=== PATIENT | female | born 1990 | race Caucasian/White ===

== ENCOUNTER 2018-03-06 23:17 | Emergency (ER) | payer OTHER ==
--- NOTE | 2018-03-07 00:20 | ED ---
General Adult HPI - General Chief complaint: Extremity Injury, Lower Stated complaint: Ankle injury Time Seen by Provider: 03/07/18 00:11 Source: patient, RN notes reviewed Mode of arrival: wheelchair Limitations: no limitations - History of Present Illness Initial comments: Patient for 27-year-old female presented to the emergency room today with a chief complaint of a fall occurred 2 hours ago. She states she fell down a few steps at the hotel she was standing up. She states she is experiencing pain from the right knee down onto the right foot. She admits to some numbness tingling sensation she states it's worse with movement of the right ankle with any plantar dorsiflexion. She denies any other complaints or injuries. States there is no head injury or loss of consciousness. Patient denies any recent fever, chills, shortness of breath, chest pain, back pain, abdominal pain, nausea or vomiting, headaches or visual changes, or any other complaints. - Related Data Home Medications Medication Instructions Recorded Confirmed No Known Home Medications [No 03/07/18 03/07/18 Known Home Medications] Allergies Allergy/AdvReac Type Severity Reaction Status Date / Time acetaminophen AdvReac Nausea & Verified 03/07/18 00:04 [From Tylenol-Codeine #3] Vomiting & Diarrhea codeine AdvReac Nausea & Verified 03/07/18 00:04 [From Tylenol-Codeine #3] Vomiting & Diarrhea Review of Systems ROS Statement: Those systems with pertinent positive or pertinent negative responses have been documented in the HPI. ROS Other: All systems not noted in ROS Statement are negative. Past Medical History Past Medical History: No Reported History History of Any Multi-Drug Resistant Organisms: None Reported Past Surgical History: Section Past Psychological History: No Psychological Hx Reported Smoking Status: Current every day smoker Past Alcohol Use History: Heavy Past Drug Use History: None Reported General Exam - General Exam Comments Initial Comments: General: The patient is awake and alert, in no distress, and does not appear acutely ill. Neck: The neck is supple, there is no tenderness or JVD. Musculoskeletal: Patient does have some bruising to the anterior aspect of the right yu. Does have some mild swelling over the lateral malleolus. Patient has noticed diffusely throughout the right yu, fibular head, down to the right ankle and into the metatarsals. Patient tenderness is greatest over the lateral malleolus on palpation. Pulses are 2+ bilaterally. Neurological: A&O x 3. CN II-XII intact, There are no obvious motor or sensory deficits. Coordination appears grossly intact. Speech is normal. Skin: Skin is warm and dry and no rashes or lesions are noted. Psychiatric: Normal mood and affect. Limitations: no limitations Course Vital Signs 03/06/18 23:59 Temperature 97.7 F Pulse Rate 107 H Respiratory 20 Rate Blood Pressure 124/75 O2 Sat by Pulse 95 Oximetry Medical Decision Making - Medical Decision Making X-rays reviewed and are negative for any acute fracture dislocation. Patient given Toradol shot here in the emergency room. She is advised to ice elevate the affected area and to follow-up with orthopedics. Advised return if symptoms increase or worsen or for any other concerns. Disposition Clinical Impression: Ankle sprain, Contusion of leg, right Disposition: HOME SELF-CARE Condition: Good Instructions: Ankle Sprain (ED) Additional Instructions: Please follow-up with orthopedic or family doctor in 7-10 days for repeat x- rays. Please return to emergency room if symptoms increase or worsen or for any other concerns. Is patient prescribed a controlled substance at d/c from ED?: No Referrals: Jenniffer Martinez MD [Primary Care Provider] - 1-2 days Bronson Griffin DO [Doctor of Osteopathic Medicine] - 1-2 days Time of Disposition: 00:59
--- NOTE | 2018-03-07 00:48 | XR ---
EXAMINATION TYPE: XR ankle complete RT DATE OF EXAM: 03/07/2018 COMPARISON: NONE HISTORY: Fell down the stairs TECHNIQUE: 3 views FINDINGS: Ankle mortise is anatomic. There is soft tissue swelling over the lateral malleolus. I see no fracture nor dislocation. IMPRESSION: Soft tissue swelling. No fracture.
--- NOTE | 2018-03-07 00:49 | XR ---
EXAMINATION TYPE: XR tibia fibula RT DATE OF EXAM: 03/07/2018 COMPARISON: NONE HISTORY: Pain. Fell down the stairs. TECHNIQUE: 2 views FINDINGS: I see no fracture nor dislocation. There are soft tissue swelling over the lateral malleolu s. Knee joint appears intact. IMPRESSION: Soft tissue swelling. No fracture.
--- NOTE | 2018-03-07 00:50 | XR ---
EXAMINATION TYPE: XR foot complete RT DATE OF EXAM: 03/07/2018 COMPARISON: NONE HISTORY: Pain. Fell down the stairs. TECHNIQUE: 3 views FINDINGS: I see no fracture nor dislocation. Metatarsals are intact. Joint spaces are normal. IMPRESSION: Normal right foot
[2018-03-07] MEDS ORDERED: KETOROLAC 60 MG/2 ML VIAL IM STA (00:58)
[2018-03-07 01:16] VITALS: BP 124/76; PULSE 104; RESP 14; TEMP 98
== END 2018-03-07 01:31 | disposition home or self-care (01) ==
LOC: EC 23:17
DX: S93.401A Sprain of unspecified ligament of right ankle, initial encounter (principal); S80.11XA Contusion of right lower leg, initial encounter; F17.200 Nicotine dependence, unspecified, uncomplicated; Z88.5 Allergy status to narcotic agent; Z88.8 Allergy status to other drugs, medicaments and biological substances; W10.9XXA Fall (on) (from) unspecified stairs and steps, initial encounter; Y92.59 Other trade areas as the place of occurrence of the external cause
CPT/HCPCS: 99283; 73590; 73610; 73630; L4350; J1885

== ENCOUNTER 2023-12-13 12:30 | Emergency (ER) | payer OTHER ==
[2023-12-13 12:44] VITALS: RESP 18
--- NOTE | 2023-12-13 13:08 | ED ---
Chest Pain HPI - General Chief Complaint: Chest Pain Stated Complaint: Chest Pain, weakness Time Seen by Provider: 12/13/23 12:46 Source: patient, RN notes reviewed, old records reviewed, Caregiver Mode of arrival: ambulatory Limitations: no limitations - History of Present Illness Initial Comments: This is a 33-year-old female to the ER for evaluation of nausea vomiting chest pain weakness, history of alcohol abuse no other current medical or surgical history comes in with chest pain for few weeks now, persistent here in the emergency department. No recent fevers travel or sick contacts no swelling or lower extremity edema he no current shortness of breath MD Complaint: chest pain -: week(s) Onset: during rest, during exertion Pain Location: substernal, left chest Pain Radiation: none Severity: moderate Quality: aching Consistency: constant Improves With: nothing Worsens With: nothing Anginal Symptoms: nausea, dyspnea Other Symptoms: palpitations Treatments Prior to Arrival: none - Related Data Home Medications Medication Instructions Recorded Confirmed No Known Home Medications 03/07/18 03/07/18 Allergies Allergy/AdvReac Type Severity Reaction Status Date / Time acetaminophen AdvReac Nausea & Verified 12/13/23 12:35 [From Tylenol-Codeine #3] Vomiting & Diarrhea codeine AdvReac Nausea & Verified 12/13/23 12:35 [From Tylenol-Codeine #3] Vomiting & Diarrhea Review of Systems ROS Statement: Those systems with pertinent positive or pertinent negative responses have been documented in the HPI. ROS Other: All systems not noted in ROS Statement are negative. EKG Findings - EKG Comments: EKG Findings:: EKG is sinus 84 [place] 163 QRS 87 QTc 387 - EKG Results: EKG: interpreted by PILAR Past Medical History Past Medical History: No Reported History History of Any Multi-Drug Resistant Organisms: None Reported Past Surgical History: Section Past Psychological History: No Psychological Hx Reported Smoking Status: Current every day smoker Past Alcohol Use History: Heavy Past Drug Use History: None Reported General Exam Limitations: no limitations General appearance: alert, in no apparent distress Head exam: Present: atraumatic, normocephalic, normal inspection Eye exam: Present: normal appearance, PERRL, EOMI. Absent: scleral icterus, conjunctival injection, periorbital swelling ENT exam: Present: normal exam, mucous membranes moist Neck exam: Present: normal inspection. Absent: tenderness, meningismus, lymphadenopathy Respiratory exam: Present: normal lung sounds bilaterally. Absent: respiratory distress, wheezes, rales, rhonchi, stridor Cardiovascular Exam: Present: regular rate, normal rhythm, normal heart sounds. Absent: systolic murmur, diastolic murmur, rubs, gallop, clicks GI/Abdominal exam: Present: soft, normal bowel sounds. Absent: distended, tenderness, guarding, rebound, rigid Extremities exam: Present: normal inspection, full ROM, normal capillary refill. Absent: tenderness, pedal edema, joint swelling, calf tenderness Back exam: Present: normal inspection Neurological exam: Present: alert, oriented X3, CN II-XII intact Psychiatric exam: Present: normal affect, normal mood Skin exam: Present: warm, dry, intact, normal color. Absent: rash Course Vital Signs 12/13/23 12/13/23 12:32 14:39 Temperature 98.4 F 98.2 F Pulse Rate 96 84 Respiratory 18 18 Rate Blood Pressure 141/93 139/87 O2 Sat by Pulse 95 96 Oximetry - Reevaluation(s) Reevaluation #1: Medical records reviewed Reevaluation #2: Patient symptoms unchanged Reevaluation #3: Patient informed of results and questions answered Reevaluation #4: Was pt. sent in by a medical professional or institution (, PA, CHORE TENDER, urgent care, hospital, or half-way...) When possible be specific @ -no Did you speak to anyone other than the patient for history (EMS, parent, family, police, friend...)? What history was obtained from this source @ -no Did you review nursing and triage notes (agree or disagree)? Why? @ -agree Are old charts reviewed (outside hosp., previous admission, EMS record, old EKG, old radiological studies, urgent care reports/EKG's, half-way records)? Report findings @ -yes Differential Diagnosis (chest pain, altered mental status, abdominal pain women, abdominal pain men, vaginal bleeding, weakness, fever, dyspnea, syncope, headache, dizziness, GI bleed, back pain, seizure, CVA, palpatations, mental health, musculoskeletal)? @ -prior EKG interpreted by me (3pts min.). @ -yes X-rays interpreted by me (1pt min.). @ -no CT interpreted by me (1pt min.). @ -no U/S interpreted by me (1pt. min.). @ -no What testing was considered but not performed or refused? (CT, X-rays, U/S, labs)? Why? @ -none What meds were considered but not given or refused? Why? @ -none Did you discuss the management of the patient with other professionals (professionals i.e. DrStephanie, PA, CHORE TENDER, lab, RT, psych nurse, social sciences lecturer, monkey breeder, teacher, landing signal officer, patient case coordinator)? Give summary @ -no Was smoking cessation discussed for >3mins.? @ -no Was critical care preformed (if so, how long)? @ -no Were there social determinants of health that impacted care today? How? (Homelessness, low income, unemployed, alcoholism, drug addiction, transportation, low edu. Level, literacy, decrease access to med. care, usp, rehab)? @ -none Was there de-escalation of care discussed even if they declined (Discuss DNR or withdrawal of care, Hospice)? DNR status @ -no What co-morbidities impacted this encounter? (DM, HTN, Smoking, COPD, CAD, Cancer, CVA, ARF, Chemo, Hep., AIDS, mental health diagnosis, sleep apnea, morbid obesity)? @ -none Was patient admitted / discharged? Hospital course, mention meds given and route, prescriptions, significant lab abnormalities, going to OR and other pertinent info. @ - 33 female to ER for evaluation of nonspecific chest pain here no acute cause found here in the ER EKG is normal patient can be discharged home Discharge Undiagnosed new problem with uncertain prognosis? @ -no Drug Therapy requiring intensive monitoring for toxicity (Heparin, Nitro, Insulin, Cardizem)? @ -no Were any procedures done? @ -no Diagnosis/symptom? @ -Chest pain Acute, or Chronic, or Acute on Chronic? @ -Acute Uncomplicated (without systemic symptoms) or Complicated (systemic symptoms)? @ -Complicated Side effects of treatment? @ -no Exacerbation, Progression, or Severe Exacerbation? @ -exacerbation Poses a threat to life or bodily function? How? (Chest pain, [place], [place], pneumonia, PE, COPD, DKA, ARF, appy, cholecystitis, CVA, Diverticulitis, Homicidal, Suicidal, threat to staff... and all critical care pts) @ -no Reevaluation #5: Differential Chest Pain: Stable Angina, Unstable Angina, STEMI, NSTEMI Aortic Dissection, Pneumothorax, Musculoskeletal, Esophageal Spasm GERD, Cholecystitis, Pancreatitis, Zoster, this is not meant to be an all-inclusive list. Chest Pain MDM - MDM 33 female to ER for evaluation of nonspecific chest pain here no acute cause found here in the ER EKG is normal patient can be discharged home Disposition Clinical Impression: Atypical chest pain, Chest pain Disposition: HOME SELF-CARE Condition: Good Instructions (If sedation given, give patient instructions): Chest Pain (ED) Is patient prescribed a controlled substance at d/c from ED?: No Referrals: None,Stated [Primary Care Provider] - 1-2 days Time of Disposition: 14:25
[2023-12-13] MEDS: MAG HYDROX/AL HYDROX/SIMETH 30 ML, HYOSCYAMINE ELIXIR 10 ML PO STA (13:23)
[2023-12-13] MEDS: SODIUM CHLORIDE 0.9% 1,000 ML IV STA (13:25)
[2023-12-13] MEDS: KETOROLAC 15 MG/ML 1 ML VIAL IVP STA (13:26)
[2023-12-13] MEDS: ONDANSETRON 4 MG/2 ML VIAL IVP STA (13:27)
[2023-12-13 13:29] LABS: Basophils # (A) 0.1 k/uL (0-0.2); Basophils % (A) 1 %; Eosinophils # (A) 0.3 k/uL (0-0.7); Eosinophils % (A) 3 %; HCT 47.9 % (34.0-46.0); HGB 15.8 gm/dL (11.4-16.0); Lymphocytes # (A) 2.9 k/uL (1.0-4.8); Lymphocytes % (A) 35 %; MCH 29.1 pg (25.0-35.0); MCHC 33.1 g/dL (31.0-37.0); MCV 88.1 fL (80.0-100.0); Mean Platelet Volume 7.6; Monocytes # (A) 0.3 k/uL (0-1.0); Monocytes % (A) 4 %; Neutrophils # (A) 4.5 k/uL (1.3-7.7); Neutrophils % (A) 55 %; Platelet Count 262 k/uL (150-450); RBC 5.44 m/uL (3.80-5.40); WBC 8.1 k/uL (3.8-10.6)
[2023-12-13 13:38] LABS: Partial Thromboplastin Time 25.3 sec (22.0-30.0); Prothrombin Time 10.6 sec (10.0-12.5)
[2023-12-13 13:42] LABS: ALT 156 U/L (4-34); AST 170 U/L (14-36); African American GFR (CKD) >90 (>60 ml/min/1.73 sqM); Albumin 4.8 g/dL (3.5-5.0); Alkaline Phosphatase 94 U/L (38-126); Anion Gap 16 mmol/L; Blood Urea Nitrogen 12 mg/dL (7-17); Calcium 9.4 mg/dL (8.4-10.2); Carbon Dioxide 18 mmol/L (22-30); Chloride 108 mmol/L (98-107); Glucose 90 mg/dL (74-99); Lipase 88 U/L (23-300); Magnesium 1.8 mg/dL (1.6-2.3); Non-African American GFR(CKD) >90 (>60 ml/min/1.73 sqM); Sodium 142 mmol/L (137-145); Total Bilirubin 1.1 mg/dL (0.2-1.3); Total Protein 7.7 g/dL (6.3-8.2)
[2023-12-13 13:50] LABS: NT-Pro-B-Type Natriuretic Pept <20 pg/mL
[2023-12-13 14:44] VITALS: BP 139/87; PULSE 84; TEMP 98.2
== END 2023-12-13 14:41 | disposition home or self-care (01) ==
LOC: EC 12:30
DX: R07.89 Other chest pain (principal); F17.200 Nicotine dependence, unspecified, uncomplicated; Z88.5 Allergy status to narcotic agent
CPT/HCPCS: 36415; 93005; 83880; 80053; 83690; 83735; 84484; 85025; 85610; 85730; 99285; 96374; 96375; 96361; J2405; J1885

== ENCOUNTER 2024-02-14 15:03 | Emergency (ER) | payer OTHER ==
[2024-02-14 15:22] VITALS: TEMP 97.6
--- NOTE | 2024-02-14 15:35 | ED ---
Chest Pain HPI - General Chief Complaint: Chest Pain Stated Complaint: Chest pain Time Seen by Provider: 02/14/24 15:19 Source: patient Mode of arrival: ambulatory Limitations: no limitations - History of Present Illness Initial Comments: This patient is a 33-year-old woman who presents for evaluation of chest pain. The patient had been to urgent care and was referred here to be seen about the pain. The pain had started on Monday. It is substernal and radiates towards the left shoulder/arm. The patient initially had nausea vomiting and diarrhea over the weekend and then the pain began. There was initially some nausea and vomiting with the pain. Patient's fianc states that she also was diaphoretic with it at onset. The patient states that when she tried to go to work today the pain was worse so she went to urgent care and then was sent here from the urgent care. MD Complaint: chest pain -: days(s) Onset: during rest Pain Location: substernal Pain Radiation: LUE, back Severity: moderate Quality: aching Consistency: constant Improves With: nothing Worsens With: nothing Anginal Symptoms: nausea, vomiting, diaphoresis Treatments Prior to Arrival: none - Related Data On Oral Contraceptives: No Home Medications Medication Instructions Recorded Confirmed Aspirin EC [Ecotrin Low Dose] 81 mg PO DAILY 02/14/24 02/14/24 Isosorbide Mononitrate ER [Imdur] 15 mg PO DAILY 02/14/24 02/14/24 Allergies Allergy/AdvReac Type Severity Reaction Status Date / Time codeine Allergy rash, Verified 02/14/24 15:36 [From Tylenol-Codeine #3] Nausea & Vomiting & Diarrhea Review of Systems ROS Statement: Those systems with pertinent positive or pertinent negative responses have been documented in the HPI. ROS Other: All systems not noted in ROS Statement are negative. Constitutional: Denies: fever, chills Respiratory: Denies: cough, dyspnea Cardiovascular: Reports: as per HPI, chest pain. Denies: palpitations, orthopnea, edema, syncope Gastrointestinal: Reports: nausea, vomiting, diarrhea. Denies: abdominal pain, melena, hematochezia Genitourinary: Denies: dysuria, hematuria Musculoskeletal: Denies: back pain Skin: Denies: rash Neurological: Denies: headache, weakness, numbness, paresthesias EKG Findings - EKG Results: EKG: interpreted by ERMD, sinus rhythm (Rate 96 bpm), normal axis, normal QRS - Blocks, [place], Hypertrophy, ST Abn: Repolarization changes or abnormalities: nonspecific abnormality, ST segment, and/or T wave Past Medical History Past Medical History: No Reported History History of Any Multi-Drug Resistant Organisms: None Reported Past Surgical History: Section Past Psychological History: No Psychological Hx Reported, Anxiety, Depression Smoking Status: Former smoker Past Alcohol Use History: Heavy, Occasional Past Drug Use History: None Reported General Exam Limitations: no limitations General appearance: alert, in no apparent distress Head exam: Present: atraumatic, normocephalic Eye exam: Present: normal appearance. Absent: scleral icterus, conjunctival injection ENT exam: Present: normal oropharynx Neck exam: Present: normal inspection Respiratory exam: Present: normal lung sounds bilaterally. Absent: respiratory distress, wheezes, rales, rhonchi, stridor, accessory muscle use Cardiovascular Exam: Present: regular rate, normal rhythm, normal heart sounds. Absent: systolic murmur, diastolic murmur, rubs, gallop GI/Abdominal exam: Present: soft, tenderness (There is mild epigastric right upper quadrant tenderness without rebound or guarding). Absent: distended, guarding, rebound, rigid, mass, pulsatile mass, hernia Extremities exam: Present: normal inspection, normal capillary refill. Absent: pedal edema, calf tenderness Back exam: Present: normal inspection. Absent: CVA tenderness (R), CVA tenderness (L) Neurological exam: Present: alert Skin exam: Present: warm, dry, intact, normal color. Absent: rash Course Vital Signs 02/14/24 02/14/24 02/14/24 15:12 17:00 18:00 Temperature 97.6 F Pulse Rate 105 H 89 75 Respiratory 18 20 14 Rate Blood Pressure 115/77 110/88 116/73 O2 Sat by Pulse 96 97 97 Oximetry Chest Pain [facility] Patient is a 33-year-old woman here to have evaluation for chest pain. Physical exam is unremarkable. The initial lab workup does reveal elevated transaminases and the patient did have ultrasound of upper quadrant. Patient states she does consume alcohol relatively moderately The patient had ultrasound of the right upper quadrant that I interpreted as negative for acute cholecystitis The patient had chest x-ray that I interpreted as negative for acute infiltrate, pneumothorax, congestive heart failure Was pt. sent in by a medical professional or institution (NIKKI Skaggs, COM WRITER, urgent care, hospital, or fpc...) When possible be specific @ -[No] Did you speak to anyone other than the patient for history (EMS, parent, family, police, friend...)? What history was obtained from this source @ -[Patient's partner did contribute to history Did you review nursing and triage notes (agree or disagree)? Why? @ -[I reviewed and agree with nursing and triage notes] Were old charts reviewed (outside hosp., previous admission, EMS record, old EKG, old radiological studies, urgent care reports/EKG's, fpc records)? Report findings @ -[No old charts were reviewed] Differential Diagnosis (chest pain, altered mental status, abdominal pain women, abdominal pain men, vaginal bleeding, weakness, fever, dyspnea, syncope, headache, dizziness, GI bleed, back pain, seizure, CVA, palpatations, mental health, musculoskeletal)? @ -[Differential Chest Pain: Stable Angina, Unstable Angina, STEMI, NSTEMI Aortic Dissection, Pneumothorax, Musculoskeletal, Esophageal Spasm GERD, Cholecystitis, Pancreatitis, Zoster, this is not meant to be an all-inclusive list. EKG interpreted by me (3pts min.). @ -[I interpreted as above] X-rays interpreted by me (1pt min.). @ -[I interpreted as above CT interpreted by me (1pt min.). @ -[None done] U/S interpreted by me (1pt. min.). @ -[I interpreted as above What testing was considered but not performed or refused? (CT, X-rays, U/S, labs)? Why? @ -[None] What meds were considered but not given or refused? Why? @ -[None] Did you discuss the management of the patient with other professionals (professionals i.e. NIKKI Skaggs, COM WRITER, lab, RT, psych nurse, aids social worker, textile supervisor, teacher, health promotion officer, adult protective caseworker)? Give summary @ -[No] Was smoking cessation discussed for >3mins.? @ -[No] Was critical care preformed (if so, how long)? @ -[No] Were there social determinants of health that impacted care today? How? (Homelessness, low income, unemployed, alcoholism, drug addiction, transportation, low edu. Level, literacy, decrease access to med. care, fci, rehab)? @ -[No] Was there de-escalation of care discussed even if they declined (Discuss DNR or withdrawal of care, Hospice)? DNR status @ -[No] What co-morbidities impacted this encounter? (DM, HTN, Smoking, COPD, CAD, Cancer, CVA, ARF, Chemo, Hep., AIDS, mental health diagnosis, sleep apnea, morbid obesity)? @ -[None] Was patient admitted / discharged? Hospital course, mention meds given and route, prescriptions, significant lab abnormalities, going to OR and other pertinent info. @ -[Patient is a 33-year-old woman with chest pain, the physical exam and initial workup are negative. I did discuss admission to have serial cardiac enzymes, telemetry monitoring, cardiology consultation, but patient states she will go home and follow-up as outpatient instead. Discussed that there is risk associated that she will return should symptoms recur or any new symptoms develop. Counseled to limit alcohol intake given the transaminases Undiagnosed new problem with uncertain prognosis? @ -[No] Drug Therapy requiring intensive monitoring for toxicity (Heparin, Nitro, Insulin, Cardizem)? @ -[No] Were any procedures done? @ -[No] Diagnosis/symptom? @ -[Acute chest pain Elevated transaminase levels Acute, or Chronic, or Acute on Chronic? @ -[Acute Uncomplicated (without systemic symptoms) or Complicated (systemic symptoms)? @ -[Uncomplicated Side effects of treatment? @ -[No] Exacerbation, Progression, or Severe Exacerbation? @ -[No] Poses a threat to life or bodily function? How? (Chest pain, [place], [place], pneumonia, PE, COPD, DKA, ARF, appy, cholecystitis, CVA, Diverticulitis, Homicidal, Suicidal, threat to staff... and all critical care pts) @ -[Yes, small risk, patient to have close outpatient follow-up, declines admission Disposition Clinical Impression: Chest pain Disposition: HOME SELF-CARE Condition: Good Instructions (If sedation given, give patient instructions): Chest Pain (ED) Is patient prescribed a controlled substance at d/c from ED?: No Referrals: None,Stated [Primary Care Provider] - 1-2 days
[2024-02-14] MEDS: MORPHINE SULFATE 4 MG/ML SYRINGE IV STA (16:22)
[2024-02-14 16:45] LABS: ALT 250 U/L (4-34); AST 510 U/L (14-36); African American GFR (CKD) >90 (>60 ml/min/1.73 sqM); Albumin 4.4 g/dL (3.5-5.0); Alkaline Phosphatase 80 U/L (38-126); Amylase 52 U/L (30-110); Anion Gap 15 mmol/L; Blood Urea Nitrogen 9 mg/dL (7-17); Calcium 9.7 mg/dL (8.4-10.2); Carbon Dioxide 21 mmol/L (22-30); Chloride 109 mmol/L (98-107); Glucose 129 mg/dL (74-99); Lipase 122 U/L (23-300); Magnesium 1.8 mg/dL (1.6-2.3); Non-African American GFR(CKD) >90 (>60 ml/min/1.73 sqM); Potassium 4.1 mmol/L (3.5-5.1); Sodium 145 mmol/L (137-145); Total Bilirubin 0.6 mg/dL (0.2-1.3); Total Protein 7.3 g/dL (6.3-8.2)
[2024-02-14 16:49] LABS: Partial Thromboplastin Time 24.8 sec (22.0-30.0); Prothrombin Time 10.8 sec (10.0-12.5)
[2024-02-14 16:57] LABS: Basophils # (A) 0.1 k/uL (0-0.2); Basophils % (A) 2 %; Eosinophils # (A) 0.2 k/uL (0-0.7); Eosinophils % (A) 3 %; HCT 45.9 % (34.0-46.0); Lymphocytes # (A) 3.1 k/uL (1.0-4.8); Lymphocytes % (A) 54 %; MCH 30.5 pg (25.0-35.0); MCHC 32.8 g/dL (31.0-37.0); MCV 92.9 fL (80.0-100.0); Mean Platelet Volume 7.3; Monocytes # (A) 0.3 k/uL (0-1.0); Monocytes % (A) 4 %; Neutrophils # (A) 2.1 k/uL (1.3-7.7); Neutrophils % (A) 36 %; Platelet Count 312 k/uL (150-450); RBC 4.94 m/uL (3.80-5.40); WBC 5.8 k/uL (3.8-10.6)
--- NOTE | 2024-02-14 17:23 | XR ---
EXAMINATION TYPE: XR chest 2V DATE OF EXAM: 02/14/2024 4:38 PM CLINICAL INDICATION:Female, 33 years old with history of Chest Pain; [facility] COMPARISON: None TECHNIQUE: XR chest 2V Frontal and lateral views of the chest. FINDINGS: Lungs/Pleura: There is no evidence of pleural effusion, focal consolidation, or pneumothorax. Pulmonary vascularity: Unremarkable. Heart/mediastinum: Cardiomediastinal silhouette is unremarkable. Musculoskeletal: No acute osseous pathology. IMPRESSION: No acute cardiopulmonary disease/process.
--- NOTE | 2024-02-14 17:47 | US ---
EXAMINATION TYPE: US abdomen limited DATE OF EXAM: 02/14/2024 COMPARISON: NONE CLINICAL INDICATION: Female, 33 years old with history of attention RUQ; RUQ pain x 3 days TECHNIQUE: Multiple sonographic images of the right upper quadrant are obtained. FINDINGS: EXAM MEASUREMENTS: Liver Length: 18.4 cm Gallbladder Wall: 0.22 cm CBD: 0.35 cm Right Kidney: 11.3 x 4.3 x 5.1 cm Pancreas: Parts seen appear wnl Liver: Heterogeneous and increased attenuation Gallbladder: wnl Evidence for sonographic Mahoney's sign: No CBD: wnl Right Kidney: Parenchyma appears lobulated IMPRESSION: 1. No evidence for acute process. 2. Hepatic steatosis.
[2024-02-14 19:08] VITALS: BP 116/73; PULSE 75; RESP 14
== END 2024-02-14 18:55 | disposition home or self-care (01) ==
LOC: EC 15:03
DX: R07.9 Chest pain, unspecified (principal); Z87.891 Personal history of nicotine dependence; Z88.5 Allergy status to narcotic agent
CPT/HCPCS: 36415; 93005; 85379; 80053; 82150; 83690; 83735; 84484; 85025; 85610; 85730; 81025; 71046; 76705; 99285; 96374; J2270

== ENCOUNTER → 2024-03-07 | Outpatient (CLI) | payer OTHER ==
[2024-03-07 14:26] LABS: Basophils # (A) 0.06 X 10*3/uL (0.00-0.10); Basophils % (A) 1.1 %; Eosinophils # (A) 0.14 X 10*3/uL (0.04-0.35); Eosinophils % (A) 2.6 %; HCT 46.3 % (37.2-46.3); HGB 14.9 g/dL (12.0-15.0); Lymphocytes # (A) 2.05 X 10*3/uL (0.90-5.00); Lymphocytes % (A) 37.3 %; MCH 30.5 pg (27.0-32.0); MCHC 32.2 g/dL (32.0-37.0); MCV 94.7 FL (80.0-97.0); Monocytes # (A) 0.46 X 10*3/uL (0.20-1.00); Monocytes % (A) 8.4 %; NRBC Per 100 WBC 0 X 10*3/uL (0.00-0.01); Neutrophils # (A) 2.77 X 10*3/uL (1.80-7.70); Neutrophils % (A) 50.4 %; Platelet Count 179 X 10*3/uL (140-440); RBC 4.89 X 10*6/uL (4.10-5.20); RDW 15.3 % (11.5-14.5); WBC 5.49 X 10*3/uL (4.50-10.00)
[2024-03-07 15:02] LABS: % Iron Saturation 51.99 (12.00-45.00); ALT 268 U/L (8-44); AST 468 U/L (13-35); Albumin 4.8 g/dL (3.8-4.9); Albumin/Globulin Ratio 1.66 Ratio (1.60-3.17); Alkaline Phosphatase 99 U/L (41-126); BUN/Creat Ratio 14.29 Ratio (12.00-20.00); Calcium 9.9 mg/dL (8.7-10.3); Carbon Dioxide 23.1 mmol/L (21.6-31.8); Chloride 100 mmol/L (96-109); Globulin 2.9 g/dL (1.6-3.3); Glucose 91 mg/dL (70-110); Iron 157 UG/DL (50-170); Potassium 4.4 mmol/L (3.5-5.5); Sodium 140 mmol/L (135-145); Total Bilirubin 1.4 mg/dL (0.3-1.2); Total Iron Binding Capacity 302 UG/DL (228-460); Total Protein 7.7 g/dL (6.2-8.2)
[2024-03-07 15:03] LABS: Hepatitis B Surface Antigen Nonreactive (Nonreactive); Hepatitis C IgG Antibody Reactive (Nonreactive)
[2024-03-07 15:31] LABS: Ceruloplasmin 21.8 mg/dL (20.0-60.0)
[2024-03-08 09:34] LABS: Protein, Total 7.5 g/dL (6.2-8.2)
[2024-03-08 13:16] LABS: Smooth Muscle Antibody 16 UNITS (<20)
[2024-03-08 20:40] LABS: Albumin 4.48 g/dL (3.80-4.90); Gamma Globulin 1.26 g/dL (0.70-1.50)
== END | disposition home or self-care (01) ==
LOC: LABWHC1 09:11
PROVIDERS: ATTEND Internal Medicine Gastroenterology
DX: R74.8 Abnormal levels of other serum enzymes (principal)
CPT/HCPCS: 36415; 80053; 81596; 82103; 82390; 82728; 83516; 83540; 83550; 84165; 85025; 86038; 86803; 87340

== ENCOUNTER → 2024-03-14 | Outpatient (CLI) | payer OTHER | END | disposition home or self-care (01) | LOC: LABWHC1 08:55 | PROVIDERS: ATTEND Nurse Practitioner Family | DX: R77.8 Other specified abnormalities of plasma proteins (principal); Z86.19 Personal history of other infectious and parasitic diseases | CPT/HCPCS: 36415; 81256; 86704; 87522 ==

== ENCOUNTER → 2024-04-17 | Outpatient (CLI) | payer OTHER ==
[2024-04-17 18:15] LABS: Basophils # (A) 0.08 X 10*3/uL (0.00-0.10); Basophils % (A) 1.1 %; Eosinophils # (A) 0.17 X 10*3/uL (0.04-0.35); Eosinophils % (A) 2.3 %; HCT 41.4 % (37.2-46.3); HGB 13.4 g/dL (12.0-15.0); Lymphocytes # (A) 2.61 X 10*3/uL (0.90-5.00); Lymphocytes % (A) 35.2 %; MCH 31.7 pg (27.0-32.0); MCHC 32.4 g/dL (32.0-37.0); MCV 97.9 FL (80.0-97.0); Mean Platelet Volume 11.2 FL (9.5-12.2); Monocytes # (A) 0.78 X 10*3/uL (0.20-1.00); Monocytes % (A) 10.5 %; NRBC Per 100 WBC 0 X 10*3/uL (0.00-0.01); Neutrophils # (A) 3.75 X 10*3/uL (1.80-7.70); Neutrophils % (A) 50.5 %; Platelet Count 350 X 10*3/uL (140-440); RBC 4.23 X 10*6/uL (4.10-5.20); RDW 12.4 % (11.5-14.5); WBC 7.42 X 10*3/uL (4.50-10.00)
[2024-04-17 18:28] LABS: ALT 171 U/L (8-44); AST 100 U/L (13-35); Albumin 4.2 g/dL (3.8-4.9); Albumin/Globulin Ratio 1.91 Ratio (1.60-3.17); Alkaline Phosphatase 80 U/L (41-126); BUN/Creat Ratio 19.67 Ratio (12.00-20.00); Blood Urea Nitrogen 11.8 mg/dL (9.0-27.0); Calcium 9.4 mg/dL (8.7-10.3); Carbon Dioxide 19.7 mmol/L (21.6-31.8); Chloride 107 mmol/L (96-109); Globulin 2.2 g/dL (1.6-3.3); Glucose 101 mg/dL (70-110); Potassium 4.5 mmol/L (3.5-5.5); Sodium 138 mmol/L (135-145); Total Bilirubin 0.3 mg/dL (0.3-1.2); Total Protein 6.4 g/dL (6.2-8.2)
== END | disposition home or self-care (01) ==
LOC: LABWHC1 09:36
PROVIDERS: ATTEND Internal Medicine Gastroenterology
DX: B18.2 Chronic viral hepatitis C (principal)
CPT/HCPCS: 36415; 80053; 85025; 87522

== ENCOUNTER 2024-08-08 19:34 | Emergency (ER) | payer OTHER ==
[2024-08-08 19:39] VITALS: TEMP 98.8
--- NOTE | 2024-08-08 19:57 | ED ---
General Adult HPI - General Chief complaint: Extremity Injury, Lower Stated complaint: fall, L foot injury Time Seen by Provider: 08/08/24 19:43 Source: patient Mode of arrival: ambulatory Limitations: no limitations - History of Present Illness Initial comments: Dictation was produced using [employer] dictation software. please excuse any grammatical, word or spelling errors. Chief Complaint: 33-year-old female presents emergency department for left ankle injury History of Present Illness: Patient is a 33-year-old female she states she was taking a step down when she inverted her left ankle. Patient states she has pain to the left lateral ankle and left lateral foot. States that she does feel some numbness. States that her toes feel little tingly. Denies any lower body injuries in the past. The ROS documented in this emergency department record has been reviewed and confirmed by me. Those systems with pertinent positive or negative responses have been documented in the HPI. All other systems are other negative and/or noncontributory. - Related Data Home Medications Medication Instructions Recorded Confirmed Aspirin EC [Ecotrin Low Dose] 81 mg PO DAILY 02/14/24 02/14/24 Isosorbide Mononitrate ER [Imdur] 15 mg PO DAILY 02/14/24 02/14/24 Previous Rx's Medication Instructions Recorded HYDROcodone/APAP 5-325MG [[place] 1 tab PO Q6HR PRN 3 Days #12 tab 08/08/24 5-325] Allergies Allergy/AdvReac Type Severity Reaction Status Date / Time codeine Allergy rash, Verified 08/08/24 19:40 [From Tylenol-Codeine #3] Nausea & Vomiting & Diarrhea Review of Systems ROS Statement: Those systems with pertinent positive or pertinent negative responses have been documented in the HPI. ROS Other: All systems not noted in ROS Statement are negative. Past Medical History Past Medical History: No Reported History History of Any Multi-Drug Resistant Organisms: None Reported Past Surgical History: Section Past Psychological History: No Psychological Hx Reported, Anxiety, Depression Smoking Status: Former smoker Past Alcohol Use History: Heavy, Occasional Past Drug Use History: None Reported General Exam - General Exam Comments Initial Comments: General: Well-appearing, nontoxic, no acute distress. Head: Normocephalic, atraumatic Eyes: PERRLA, EOMI ENT: Airway patent Chest: Nonlabored breathing Skin: No visual rash, normal skin tone Neuro: Alert and oriented 3 Musculoskeletal: No gross abnormalities Left lower extremity: Large area of ecchymoses being 5 x 3 cm along the dorsal lateral left foot. Palpatory tenderness along the ATFL Limitations: no limitations Course Vital Signs 08/08/24 08/08/24 19:36 21:10 Temperature 98.8 F Pulse Rate 111 H 108 H Respiratory 20 18 Rate Blood Pressure 125/86 129/101 O2 Sat by Pulse 99 100 Oximetry Procedures - Orthopedic Splinting/Casting Injury #1 Side: left Lower Extremity Injury Location: short leg Medical Decision Making - Medical Decision Making Was pt. sent in by a medical professional or institution (, PA, PUBLIC ADMINISTRATION TEACHER, urgent care, hospital, or long term...) When possible be specific @ -No Did you speak to anyone other than the patient for history (EMS, parent, family, police, friend...)? What history was obtained from this source @ -Family at the bedside as described above Did you review nursing and triage notes (agree or disagree)? Why? @ -I reviewed and agree with nursing and triage notes Were old charts reviewed (outside hosp., previous admission, EMS record, old EKG, old radiological studies, urgent care reports/EKG's, long term records)? Report findings @ -No old charts were reviewed Differential Diagnosis (chest pain, altered mental status, abdominal pain women, abdominal pain men, vaginal bleeding, musculoskeletal, weakness, fever, dyspnea, syncope, headache, dizziness, GI bleed, back pain, seizure, CVA, palpatations, mental health)? @ -Ankle sprain, ankle fracture, metatarsal fracture EKG interpreted by me (3pts min.). @ -None done X-rays interpreted by me (1pt min.). @ -Ankle and foot x-ray shows fifth proximal metatarsal fracture CT interpreted by me (1pt min.). @ -None done U/S interpreted by me (1pt. min.). @ -None done What testing was considered but not performed or refused? (CT, X-rays, U/S, labs)? Why? @ -None What meds were considered but not given or refused? Why? @ -None Was smoking cessation discussed for >3mins.? @ -No Were there social determinants of health that impacted care today? How? (Homelessness, low income, unemployed, alcoholism, drug addiction, transportation, low edu. Level, literacy, decrease access to med. care, [place] [facility], rehab)? @ -No Was there de-escalation of care discussed even if they declined (Discuss DNR or withdrawal of care, Hospice)? DNR status @ -No What co-morbidities impacted this encounter? (DM, HTN, Smoking, COPD, CAD, Cancer, CVA, ARF, Chemo, Hep., AIDS, mental health diagnosis, sleep apnea, morbid obesity)? @ -None Was patient admitted / discharged? Hospital course, mention meds given and route, prescriptions, significant lab abnormalities, going to OR and other pertinent info. @ -33-year-old female presents to the emergency department with fifth metatarsal fracture. Vital signs upon arrival shows tachycardia slightly previous vital signs within acceptable limits. Patient given analgesics pix x- ray shows metatarsal fracture. Patient placed in a short leg splint patient given crutches told to be nonweightbearing. Patient prescription for analgesics given referral to follow-up with orthopedic surgery in the next 1 to 2 days Did you discuss the management of the patient with other professionals (professionals i.e. , PA, PUBLIC ADMINISTRATION TEACHER, lab, RT, psych nurse, public health social worker, resaw tailer, teacher, surveillance officer, binder caser)? Give summary @ -No Was critical care preformed (if so, how long)? @ -No Undiagnosed new problem with uncertain prognosis? @ -No Drug Therapy requiring intensive monitoring for toxicity (Heparin, Nitro, Insulin, Cardizem)? @ -No Were any procedures done? @ -No Diagnosis/symptom? Acute, or Chronic, or Acute on Chronic? Uncomplicated (without systemic symptoms) or Complicated (systemic symptoms)? @ -Fifth metatarsal fracture Side effects of treatment? @ -No Exacerbation, Progression, or Severe Exacerbation? @ -No Poses a threat to life or bodily function? How? (Chest pain, [place], [place], pneumonia, PE, COPD, DKA, ARF, appy, cholecystitis, CVA, Diverticulitis, Homicidal, Suicidal, threat to staff... and all critical care pts) @ -yes Disposition Clinical Impression: Metatarsal fracture Disposition: HOME SELF-CARE Condition: Fair Instructions (If sedation given, give patient instructions): Foot Fracture in Adults (ED) Prescriptions: HYDROcodone/APAP 5-325MG [[place] 5-325] 1 tab PO Q6HR PRN 3 Days #12 tab PRN Reason: Severe Pain Is patient prescribed a controlled substance at d/c from ED?: Yes If prescribed controlled substance>3 days was MAPS reviewed?: Prescribed <3 Days Referrals: Regis Burch MD [STAFF PHYSICIAN] - 1-2 days Time of Disposition: 21:22
--- NOTE | 2024-08-08 20:39 | XR ---
Left foot. HISTORY: Pain. COMPARISON: None TECHNIQUE: 3 views of the left foot were obtained. FINDINGS: There is a transverse fracture of the base of the fifth metatarsal with minimal displacement. The rem aining osseous structures and articulation is normal. IMPRESSION: Fracture of the fifth metatarsal [facility], , 08/08/2024 8:36 PM
--- NOTE | 2024-08-08 20:40 | XR ---
Left ankle HISTORY: Pain COMPARISON: None TECHNIQUE: 3 views of the left ankle were obtained. FINDINGS: The ankle mortise is intact and there is no ankle fracture. There is a transverse fracture of the fif th metatarsal. IMPRESSION: 1. No ankle fracture. 2. Fracture of the base of the fifth metatarsal. [facility], Workstation: [facility], 08/08/2024 8:38 PM
[2024-08-08] MEDS: ACETAMINOPHEN TAB 500 MG TAB PO STA (20:56)
[2024-08-08] MEDS: MORPHINE SULFATE 4 MG/ML SYRINGE IM STA (21:13)
[2024-08-08 21:16] VITALS: BP 129/101; PULSE 108; RESP 18
[2024-08-08] MEDS: traMADol 50 MG STARTER PACK 3 TAB BTL PO STA (21:25)
== END 2024-08-08 21:35 | disposition home or self-care (01) ==
LOC: EC 19:34
CPT/HCPCS: 29515; 96372; 99283

== ENCOUNTER 2024-11-10 22:05 | Emergency (ER) | payer OTHER ==
[2024-11-10 22:11] VITALS: TEMP 98.6
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
[2024-11-10] MEDS: ACETAMINOPHEN TAB 325 MG TAB PO STA (22:47)
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
[2024-11-11] VITALS: BP 126/91; PULSE 89; RESP 18
== END 2024-11-10 23:40 | disposition home or self-care (01) ==
LOC: EC 22:05
DX: S93.612A Sprain of tarsal ligament of left foot, initial encounter (principal); Z88.5 Allergy status to narcotic agent; Z87.891 Personal history of nicotine dependence; Z86.73 Personal history of transient ischemic attack (TIA), and cerebral infarction without residual deficits; Y04.8XXA Assault by other bodily force, initial encounter
CPT/HCPCS: 99284

== ENCOUNTER 2025-01-04 15:33 | Emergency (ER) | payer OTHER ==
[2025-01-04 15:39] VITALS: RESP 18
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
[2025-01-04] MEDS: SODIUM CHLORIDE 0.9% 1,000 ML IV STA ×2 (15:57→18:25)
[2025-01-04] MEDS: KETOROLAC 15 MG/ML 1 ML VIAL IVP STA (15:58)
[2025-01-04] MEDS: ONDANSETRON 4 MG/2 ML VIAL IVP STA (15:59)
--- NOTE | 2025-01-04 16:22 | XR ---
EXAMINATION TYPE: XR chest 2V DATE OF EXAM: 01/04/2025 4:15 PM COMPARISON: Chest radiograph 02/14/2024. CLINICAL INDICATION: Female, 34 years old with history of Chest Pain; [facility] TECHNIQUE: XR chest 2V Frontal and lateral views of the chest. FINDINGS: Lungs/Pleura: There is no evidence of pleural effusion, focal consolidation, or pneumothorax. Pulmonary vascularity: Unremarkable. Heart/mediastinum: Cardiomediastinal silhouette is unremarkable. Musculoskeletal: No acute osseous pathology. Other findings: None IMPRESSION: No acute cardiopulmonary disease/process. [facility], , 01/04/2025 4:20 PM
[2025-01-04 16:32] LABS: Basophils # (A) 0.1 k/uL (0-0.2); Basophils % (A) 1 %; Eosinophils # (A) 0.3 k/uL (0-0.7); Eosinophils % (A) 2 %; HCT 45.4 % (34.0-46.0); HGB 14.6 gm/dL (11.4-16.0); Lymphocytes % (A) 36 %; MCH 28.6 pg (25.0-35.0); MCHC 32.3 g/dL (31.0-37.0); MCV 88.5 fL (80.0-100.0); Mean Platelet Volume 7.6; Monocytes # (A) 0.6 k/uL (0-1.0); Monocytes % (A) 3 %; Neutrophils # (A) 9.6 k/uL (1.3-7.7); Neutrophils % (A) 57 %; Platelet Count 379 k/uL (150-450); RBC 5.12 m/uL (3.80-5.40); RDW 14.2 % (11.5-15.5); WBC 16.8 k/uL (3.8-10.6)
[2025-01-04 16:47] LABS: ALT 109 U/L (4-34); African American GFR (CKD) >90 (>60 ml/min/1.73 sqM); Albumin 4.6 g/dL (3.5-5.0); Anion Gap 16 mmol/L; Blood Urea Nitrogen 9 mg/dL (7-17); Calcium 9.9 mg/dL (8.4-10.2); Carbon Dioxide 16 mmol/L (22-30); Chloride 108 mmol/L (98-107); Glucose 91 mg/dL (74-99); Non-African American GFR(CKD) >90 (>60 ml/min/1.73 sqM); Sodium 140 mmol/L (137-145); Total Bilirubin 0.5 mg/dL (0.2-1.3); Total Protein 7.5 g/dL (6.3-8.2)
[2025-01-04 16:51] LABS: INR 0.9 (<1.2); Prothrombin Time 10.3 sec (10.0-12.5)
[2025-01-04 16:55] LABS: Appearance,Urine Cloudy (Clear); Bilirubin,Urine Negative (Negative); Blood,Urine Negative (Negative); Color,Urine Yellow; Glucose,Urine (UA) Negative (Negative); Ketones,Urine Negative (Negative); Leukocyte Esterase,Urine Negative (Negative); Mucus,Urine Many /hpf; Nitrite,Urine Negative (Negative); PH, Urine 5.5 (5.0-8.0); Protein,Urine Negative (Negative); RBC,Urine 1 /hpf (0-5); Specific Gravity,Urine 1.014 (1.001-1.035); Squamous Epithelial Cell,Urine 7 /hpf (0-4); Urobilinogen,Urine <2.0 mg/dL (<2.0); WBC,Urine 1 /hpf (0-5)
[2025-01-04 16:56] LABS: NT-Pro-B-Type Natriuretic Pept <20 pg/mL
[2025-01-04 17:03] LABS: RBC Morphology Normal
[2025-01-04 17:25] LABS: AST 107 U/L (14-36); Alkaline Phosphatase 77 U/L (38-126); Magnesium 1.9 mg/dL (1.6-2.3); Potassium 4.3 mmol/L (3.5-5.1)
--- NOTE | 2025-01-04 18:34 | US ---
EXAMINATION TYPE: Transabdominal DATE OF EXAM: 01/04/2025 6:22 PM COMPARISON: None. CLINICAL INDICATION: Female, 34 years old with history of pain; Patient states no pelvic pain or blee ding TECHNIQUE: Transabdominal (TA) FINDINGS: EXAM MEASUREMENTS: GESTATIONAL AGE / DATING Physician Established: Not yet established Dates by LMP: LMP unknown Dates by First Scan: No previous this is first scan Dates by Current Scan for: (7 weeks/2 days) EDC: 08/21/2025 MATERNAL ANATOMY Uterus: 8.7 x 6.4 x 7.0cm Right Ovary: 2.9 x 2.0 x 2.2cm Left Ovary: 3.3 x 2.0 x 2.5cm Post CDS / Adnexa: wnl Presence of free fluid: no Presence of corpus luteal cyst: not seen Presence of subchorionic bleed: no GESTATION / SURVEY CRL: 1.1cm (7 weeks/2 days) Yolk Sac (normal less than 6mm): 4.0mm Cardiac Activity/Heart Rate: 152 bpm Rhythm: Normal IUP: Viable IUP Date of LMP: Patient unsure Beta HcG (if available): Not available at time of exam IMPRESSION: 1. Single live intrauterine with estimated gestational age of 7 weeks 2 days. [facility], , 01/04/2025 6:32 PM
[2025-01-04 18:55] VITALS: BP 124/76; PULSE 113; TEMP 98.2
== END 2025-01-04 18:58 | disposition home or self-care (01) ==
LOC: EC 15:33
DX: O99.411 Diseases of the circulatory system complicating pregnancy, first trimester (principal); R07.89 Other chest pain; O26.891 Other specified pregnancy related conditions, first trimester; R10.9 Unspecified abdominal pain; Z87.891 Personal history of nicotine dependence
CPT/HCPCS: 36415; 93005; 83880; 80053; 83735; 84484; 85025; 85610; 85730; 81001; 81025; 84702; 71046; 76801; 99285; 96374; 96361 ×3; J1885

== ENCOUNTER → 2025-01-29 | Outpatient (CLI) | payer OTHER ==
--- NOTE | 2025-01-30 07:06 | US ---
EXAMINATION TYPE: Transabdominal DATE OF EXAM: 01/29/2025 4:02 PM COMPARISON: US 01/04/2025 CLINICAL INDICATION: Female, 34 years old with history of Z34.91 ENCNTR FOR SUPRVSN OF NORMAL PREG, U NSP, FI; Pt states scan to confirm dates TECHNIQUE: Transabdominal (TA) with grayscale and color Doppler imaging including first trimester pre gnancy. FINDINGS: EXAM MEASUREMENTS: GESTATIONAL AGE / DATING Physician Established: Not yet established Dates by LMP: Unknown Dates by First Scan: (10 weeks/6 days) EDC: 08/21/2025 Dates by Current Scan for: (11 weeks/2 days) EDC: 08/18/2025 MATERNAL ANATOMY Uterus: 14.5 x 4.9 x 11.1 cm Right Ovary: 2.7 x 2.1 x 2.3 cm Left Ovary: 3.4 x 2.2 x 2.8 cm Post CDS / Adnexa: wnl Presence of free fluid: No Presence of corpus luteal cyst: Left Ovary= 1.7 x 1.9 x 1.9 cm Presence of subchorionic bleed: No GESTATION / SURVEY CRL: 4.5 cm (11 weeks/2 days) Gestational Sac morphology: Normal Cardiac Activity/Heart Rate: 166 bpm Rhythm: Normal IUP: Viable IUP Nuchal Translucency 10-14wks (normal less than 3mm): 2mm Single, viable IUP/ No abnormality visualized at this time IMPRESSION: Single live intrauterine with calculated ultrasound age of 11 weeks 2 days with an estimate d date of delivery of 08/18/2025. [facility], , 01/30/2025 7:04 AM
== END | disposition home or self-care (01) ==
LOC: RADUSWWP 15:49
DX: Z34.91 Encounter for supervision of normal pregnancy, unspecified, first trimester (principal); Z3A.11 11 weeks gestation of pregnancy
CPT/HCPCS: 76801; 76813

== ENCOUNTER → 2025-02-19 | Outpatient (CLI) | payer OTHER ==
--- NOTE | 2025-02-19 14:37 | XR ---
EXAMINATION TYPE: XR foot complete LT DATE OF EXAM: 02/19/2025 1:53 PM COMPARISON: 11/10/2024 CLINICAL INDICATION: Female, 34 years old with history of S92.353A DISP FX OF FIFTH METATARSAL BONE, UNSP FO; PHH, pain TECHNIQUE: 3 views FINDINGS: Redemonstrated transverse intra-articular fracture at the base of the fifth metatarsal. Fracture exte nds into the fifth TMT joint. There is similar approximately 1 to 2 mm of distraction and interval de velopment of some sclerosis along the fracture margin. A well-defined fracture lucency remains. No ad ditional acute fracture, subluxation, or dislocation. IMPRESSION: Continued transverse fracture of the fifth metatarsal. Similar 1-2 mm of separation. Given interval d evelopment of some sclerosis along the fracture margin, close clinical follow-up to exclude nonunion. [facility], , 02/19/2025 2:35 PM
== END | disposition home or self-care (01) ==
LOC: RADXRMAIN 13:41
DX: S92.353A Displaced fracture of fifth metatarsal bone, unspecified foot, initial encounter for closed fracture (principal); X58.XXXA Exposure to other specified factors, initial encounter

== ENCOUNTER → 2025-03-20 | Outpatient (CLI) | payer OTHER ==
--- NOTE | 2025-03-20 16:49 | US ---
EXAMINATION TYPE: US OB anatomy transabd DATE OF EXAM: 03/20/2025 COMPARISON: 01/29/2025 CLINICAL INDICATION: Female, 34 years old with history of Z34.91 SUPRVSN OF NORMAL PREG, UNSP, FIRST TRIMEST; Anatomy TECHNIQUE: Transabdominal (TA) with grayscale imaging of single gestation. FINDINGS: EXAM MEASUREMENTS: GESTATIONAL AGE / DATING Physician Established: (18 weeks/0 days) EDC: 08/21/2025 Dates by LMP: ( weeks/ days) EDC: Dates by First Scan: (18 weeks/0 days) EDC: 08/21/2025 Dates by Current Scan for: (18 weeks/2 days) EDC: 08/19/2025 SURVEY IUP: Single PLACENTA: Posterior PREVIA: No previa CULLEN: 10.2 cm Normal CERVICAL LENGTH (transabdominal: norm > 3.0cm): 3.6 cm BIOMETRY PRESENTATION: Vertex LIE: Longitudinal BPD: 4.1 cm 18 weeks / 4 days HC: 14.9 cm 18 weeks / 0 days AC: 12.2 cm 18 weeks / 0 days FL: 2.8 cm 18 weeks / 4 days ESTIMATED WEIGHT IN GRAMS: 228 grams ESTIMATED WEIGHT IN LBS/OZ: 0 lbs. 8 oz. WEIGHT PERCENTAGE BASED ON ESTABLISHED DATE: 57 % HC/AC: 1.22 Normal FL/AC: 23% Normal HEART RATE: 158 bpm RHYTHM: Normal ANATOMY SEEN (within normal limits): * Lateral Vent (< 1 cm) 0.82 cm * Cisterna Magna (< 1.1 cm) 0.30 cm * Nuchal Fold (< 0.6 cm) 0.1 cm * Cerebellum (varies with age) 1.82 cm Choroid Plexus (bilateral) Midline Falx Cavus Septi Pellucidi Four Chamber Heart Outflow tracts: LVOT/RVOT Stomach Situs Nose / Lips Diaphragm Kidneys (bilateral) Bladder Cord Insert Three Vessel Cord Longitudinal Spine Transverse Spine Arms (bilateral) Legs (bilateral) ANATOMY SEEN (does not appear within normal limits): All anatomy seen and appears within normal limit s ANATOMY NOT SEEN: All anatomy seen IMPRESSION: Single live intrauterine gestation ultrasound age 18 weeks 2 days. Additional formation as described above. anatomy evaluation should be performed at a dedicated imaging Center. [facility], , 03/20/2025 4:47 PM
== END | disposition home or self-care (01) ==
LOC: RADUSWWP 15:24
DX: Z34.91 Encounter for supervision of normal pregnancy, unspecified, first trimester (principal); Z3A.18 18 weeks gestation of pregnancy
CPT/HCPCS: 76811